=== PATIENT | female | born 1990 | race African-American/Black ===

== ENCOUNTER 2021-05-08 03:47 | Emergency (ER) | payer OTHER ==
[~2021-05-08] VITALS: Ht 165.1 cm; Wt 104.3 kg
[2021-05-08] MEDS ORDERED: TRAMADOL 50 MG50 MG PO (06:18)
[2021-05-08] MEDS ORDERED: FLEXERIL PO (06:18)
[2021-05-08 07:16] VITALS: BP 124/68
--- NOTE | 2021-05-08 10:08 | EKG ---
[place] [address] ELECTROCARDIOGRAM REPORT Name: JULIO MCCOLLUM Room: [facility]#: [id number] Admission: 05/08/21 Attend Phys: Discharge: 05/08/21 Date of : [birth year] Date of Service: 05/08/21 0551 Report #: [id number] THIS REPORT FOR: //name// [facility] ED Test Date: 2021-05-08 Test Time: 05:51:18 Pat Name: JULIO MCCOLLUM Department: Room: Gender: [employer] Technician: IKER : 1990 Requested By: Navya Mosqueda Order Number: [id number] MD: Maurice Aragon Measurements Intervals [place] Rate: 75 P: 4 WV: 199 QRS: 15 QRSD: 96 T: 4 QT: 373 QTc: 417 Interpretive Statements Sinus rhythm Borderline T abnormalities, inferior leads No previous ECG available for comparison Electronically Signed On 05-08-2021 10:08:40 CDT by Maurice Aragon [email or web address] <ELECTRONICALLY SIGNED> By: Maurice Aragon MD, [facility] 05/08/21 1008 [id number] [id number] Maurice Aragon MD, [facility] /EPI
== END 2021-05-08 07:17 | disposition home or self-care (01) ==
LOC: M.ERS 03:47
DX: M62.830 Muscle spasm of back (principal); Z98.890 Other specified postprocedural states

== ENCOUNTER 2021-05-08 17:55 | Emergency (ER) | payer OTHER ==
[~2021-05-08] VITALS: Ht 165.1 cm; Wt 104.3 kg
[~2021-05-08 17:55] MED LIST: FLEXERIL PO; TRAMADOL 50 MG50 MG PO
[2021-05-08 19:53] LABS: URINE BILIRUBIN NEGATIVE (Negative); URINE BLOOD NEGATIVE (Negative); URINE CLARITY CLEAR; URINE COLOR YELLOW; URINE GLUCOSE-RANDOM NEGATIVE (Negative); URINE KETONES NEGATIVE (Negative); URINE LEUKOCYTES-REFLEX NEGATIVE (Negative); URINE NITRITE-REFLEX NEGATIVE (Negative); URINE PROTEIN NEGATIVE (Negative); URINE SPECIFIC GRAVITY 1.025 (1.005-1.030); URINE UROBILINOGEN 0.2 E.U./dl (0.2-1.0)
[2021-05-08 19:55] LABS: ABSOLUTE BASOPHILS 0.1 thou/uL (0.0-0.2); ABSOLUTE EOSINOPHILS 0.1 thou/uL (0.0-0.7); ABSOLUTE LYMPHOCYTES 2.7 thou/uL (0.8-5.3); ABSOLUTE MONOCYTES 0.7 thou/uL (0.0-1.2); ABSOLUTE NEUTROPHILS 5.2 thou/uL (1.6-8.1); BASOPHILS 1.4 %; EOSINOPHILS 1.5 %; HEMOGLOBIN 12.6 gm/dL (12.0-15.0); LYMPHOCYTES 30.6 %; MCH 25.7 pg (26.0-34.0); MCHC 32.3 g/dL (28.0-37.0); MCV 79.4 fL (80.0-100.0); MPV 7.6 fl. (7.2-11.1); NUCLEATED RBCS 0 /100WBC; PLATELET COUNT* 371 thou/uL (150-400); POLYS 58.5 %; RBC 4.91 mil/uL (4.20-5.00); WBC 8.9 thou/uL (4.0-11.0)
[2021-05-08 20:02] LABS: CALCIUM 8.6 mg/dL (8.5-10.1); CREATININE 0.8 mg/dL (0.6-1.3); POTASSIUM 3.4 mmol/L (3.5-5.1)
[2021-05-08 20:30] LABS: ALBUMIN 3.4 g/dL (3.4-5.0); DIRECT BILIRUBIN 0.1 mg/dL (<0.1-0.3); TOTAL BILIRUBIN 0.2 mg/dL (<0.1-1.0); TOTAL PROTEIN 8.2 g/dL (6.4-8.2)
[2021-05-08 20:44] LABS: AMP/METHAMP Negative (Negative); BARBITURATES Negative (Negative); BENZODIAZEPINES Negative (Negative); COCAINE Negative (Negative); METHADONE Negative (Negative); OPIATES Negative (Negative); PCP Negative (Negative); THC Negative (Negative)
[2021-05-08 21:46] VITALS: BP 110/54
--- NOTE | 2021-05-09 12:00 | EKG ---
[place] [address] ELECTROCARDIOGRAM REPORT Name: JULIO MCCOLLUM Room: [facility]#: [id number] Admission: 05/08/21 Attend Phys: Discharge: 05/08/21 Date of : [birth year] Date of Service: 05/08/211800 Report #: [id number] THIS REPORT FOR: //name// [facility] ED Test Date: 2021-05-08 Test Time: 18:01:58 Pat Name: JULIO MCCOLLUM Department: Room: Gender: F Negotiator: JOSE ENRIQUE : 1990 Requested By: Sheri Strauss Order Number: [id number] MD: Seun Alvarez Measurements Intervals [place] Rate: 87 P: 22 CO: 181 QRS: 49 QRSD: 87 T: 38 QT: 346 QTc: 417 Interpretive Statements Sinus rhythm Compared to ECG 05/08/2021 05:51:18 T-wave abnormality no longer present Electronically Signed On 05-09-2021 11:59:59 CDT by Seun Alvarez [email or web address] <ELECTRONICALLY SIGNED> By: Seun Alvarez MD, [facility] 05/09/21 1159 1801 180 Seun Alvarez MD, [facility] /EPI
== END 2021-05-08 21:46 | disposition home or self-care (01) ==
LOC: M.ERS 17:55
PROVIDERS: Emergency Medicine
DX: M62.838 Other muscle spasm (principal); M79.18 Myalgia, other site; Z98.890 Other specified postprocedural states; Z79.899 Other long term (current) drug therapy

== ENCOUNTER 2021-12-14 01:46 | Emergency (ER) | payer OTHER, MEDICAID ==
[~2021-12-14] VITALS: Ht 165.1 cm; Wt 104.3 kg
[2021-12-14] MEDS ORDERED: IBUPROFEN 600600 M1 PO (02:31)
[2021-12-14] MEDS ORDERED: ACETAMINOPHEN-1 EAC2 PO (02:31)
[2021-12-14] MEDS ORDERED: AMOXICILLIN500 M1 PO (02:38)
[2021-12-14 02:48] VITALS: BP 146/89
== END 2021-12-14 02:48 | disposition home or self-care (01) ==
LOC: M.ERS 01:46
DX: J02.9 Acute pharyngitis, unspecified (principal); Z98.890 Other specified postprocedural states